=== PATIENT | female | born 1990 | race Caucasian/White ===

== ENCOUNTER 2017-05-15 22:31 | Emergency (ER) | payer OTHER ==
[2017-05-15 22:37] VITALS: TEMP 98.6; O2SAT 100; BMI 22.5
[2017-05-15] MEDS ORDERED: Lidocaine/Prilocaine 2.5%-2.5% Cream(30 gm) TOP ONE (23:11)
--- NOTE | 2017-05-16 00:16 | ED PDOC ---
Arrival/HPI - General Chief Complaint: Abnormal Skin Integrity Time Seen by Provider: 05/15/17 22:42 Historian: Patient - History of Present Illness Narrative History of Present Illness (Text): 05/16/17 00:15 Patient reports sustaining laceration to the left side of her face when a mirror fell and hit her on the head prior to arrival. Otherwise: (-) loss of consciousness, (-) nausea, (-) vomiting, (-) severe headache, (-) other injury, (-) neck pain, (-) subjective neurologic deficit, (-) anticoagulants. Has no history of prior significant head injury. PMD [place] Past Medical History - Infectious Disease Hx of Infectious Diseases: None - Tetanus Immunization Tetanus Immunization: Up to Date - HEENT Hx HEENT Disorder: Yes Other/Comment: DX:CHRONIC TONSILITIS - Genitourinary/Gynecological Other/Comment: pt misses periods "once in a while". OBGYN aware and she goes to appts regularly. - Psychiatric Hx Substance Use: No - Surgical History Hx Tonsillectomy: Yes - Anesthesia Hx Anesthesia: Yes Hx Anesthesia Reactions: No Family/Social History - Physician Review Nursing Documentation Reviewed: Yes Family/Social History: No Known Family HX Smoking Status: Never Smoked Hx Alcohol Use: No Hx Substance Use: No Allergies/Home Meds Allergies/Adverse Reactions: Allergies Penicillins Allergy (Verified 05/15/17 22:36) RASH Home Medications: Home Meds Medication Instructions Recorded Confirmed Norgestimate-Ethinyl Estradiol 1 tab PO DAILY 05/15/17 05/15/17 [Tri-Linyah Tablet] Review of Systems - Review of Systems Constitutional: Normal. absent: Fatigue, Weight Change, Fevers Respiratory: Normal. absent: SOB, Cough Cardiovascular: Normal. absent: Chest Pain, Palpitations Musculoskeletal: Normal. absent: Arthralgias, Back Pain, Neck Pain Skin: Normal, Laceration. absent: Rash, Pruritis, Skin Lesions Neurological: Normal. absent: Headache, Dizziness, Focal Weakness Physical Exam - Physical Exam Narrative Physical Exam (Text): 05/16/17 00:17 GENERAL APPEARANCE: Patient is awake, alert, oriented x 3, in mild painful distress. SKIN: Warm, dry; (-) cyanosis, (+) 6 cm linear laceration to the left side of the cheek. HEAD: (-) swelling and tenderness, with no palpable bony defect. EYES: (-) conjunctival pallor, (-) scleral icterus, (-) nystagmus. ENMT: Mucous membranes moist. (-) Rodriguez's sign. TMs: (-) blood. Nose: (- ) tenderness, (-) rhinorrhea. No oral trauma. Pharynx clear. Airway patent: (-) stridor. Full ROM of mandible without pain. NECK: (-) tenderness, (-) stiffness, (-) lymphadenopathy. CHEST AND RESPIRATORY: (-) chest wall tenderness. Lungs: (-) rales, (-) rhonchi, (-) wheezes; breath sounds equal bilaterally. HEART AND CARDIOVASCULAR: (-) irregularity; (-) murmur, (-) gallop. ABDOMEN AND GI: Soft; (-) tenderness. BACK: (-) tenderness. EXTREMITIES: (-) deformity, (-) tenderness, (-) limitation of motion NEURO AND PSYCH: GCS=15. Mental status as above. Has full memory of episode; lathe tender: Pupils equal & reactive . EOMI. (-) facial asymmetry. Tongue and uvula midline. Strength 5/5 in all extremities. No gross sensory deficits. DTRs symmetric. Vital Signs Temp Pulse Resp BP Pulse Ox 05/16/17 01:54 84 18 120/78 100 05/15/17 22:36 98.6 F 96 H 19 135/97 H 100 Medical Decision Making ED Course and Treatment: 05/16/17 00:14 26-year-old female presents to the ER for a laceration to the left side of her face which she sustained when a mirror fell on her head. On exam patient is noted to have a 6 cm laceration to the left side of her cheek which will require laceration repair. Due to the length and depth of the laceration, patient was advised that the best repair will be with sutures, however the patient is refusing, states that she prefers any other alternative methods such as dermabond. The wound is left side of the cheek. The wound was copiously irrigated with normal saline. The wound was prepped and draped in the normal sterile fashion. The wound was explored for foreign bodies and none were found. The wound was anesthetised using EMLA cream. The edges were reapproximated using dermabond. Bleeding was well controlled and the patient tolerated the procedure well. Given a dose of keflex po and tdap IM. Patient states she fully agrees with and understands discharge instructions. States that she agrees with the plan and disposition. Verbalized and repeated discharge instructions and plan. I have given the patient opportunity to ask any additional questions. Follow up with primary care physician in 1-2 days without fail. Return to the emergency room at any time for any new or worsening symptoms. 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 Disposition/Present on Arrival - Present on Arrival Any Indicators Present on Arrival: No History of DVT/PE: No History of Uncontrolled Diabetes: No Urinary Catheter: No History of Decub. Ulcer: No History Surgical Site Infection Following: None - Disposition Have Diagnosis and Disposition been Completed?: Yes Diagnosis: Facial laceration, Head injury Disposition Time: 01:39 Patient Plan: Discharge Patient Problems: Current Active Problems Problem Status Onset Facial laceration Acute Head injury Acute Condition: GOOD Discharge Instructions (ExitCare): Head Injury (ED), Facial Laceration (ED) Print Language: WOLOF Prescriptions: Cephalexin [Keflex] 500 mg PO Q6 #28 capsule
[2017-05-16] MEDS ORDERED: TDAP Vaccine 0.5 mL Syr IM ONE (01:46)
[2017-05-16 01:55] VITALS: BP 120/78; PULSE 84; RESP 18
== END 2017-05-16 02:25 | disposition home or self-care (01) ==
LOC: ED 22:31
DX: S01.412A Laceration without foreign body of left cheek and temporomandibular area, initial encounter (principal); W25.XXXA Contact with sharp glass, initial encounter; Y93.89 Activity, other specified; Y92.89 Other specified places as the place of occurrence of the external cause; Z23 Encounter for immunization

== ENCOUNTER 2017-08-28 03:43 | Emergency (ER) | payer OTHER ==
[2017-08-28 03:43] VITALS: BMI 22.5
[2017-08-28 03:52] VITALS: BP 134/82; PULSE 98; RESP 18; TEMP 99.9; O2SAT 100
--- NOTE | 2017-08-28 04:10 | ED PDOC ---
Arrival/HPI - General Chief Complaint: GI Problem Time Seen by Provider: 08/28/17 03:49 Historian: Patient - History of Present Illness Narrative History of Present Illness (Text): 08/28/17 03:50 Mary Nolan is a 27 year old female who presents to the emergency department complaining of productive coughs for about 3 weeks, nasal pharynx pain, sore throat, fever, nausea, and vomiting that began yesterday. Patient states that she woke up with flu-like symptoms today with an initial temperature of 100.6 which dropped to a 99.6 after taking fever reducers prior to arrival. Patient also staets to experience associated chills and dry-heaving. Patient denies any chest pain, shortness of breath, diarrhea, urinary symptoms, back pain, neck pain, headache, dizziness, or any other complaints. Time/Duration: 24 hours Symptom Onset: Gradual Symptom Course: Unchanged Severity Level: Mild Activities at Onset: Rest Context: Home Past Medical History - Provider Review Nursing Documentation Reviewed: Yes - Infectious Disease Hx of Infectious Diseases: None - Tetanus Immunization Tetanus Immunization: Up to Date - HEENT Hx HEENT Disorder: Yes Other/Comment: DX:CHRONIC TONSILITIS - Genitourinary/Gynecological Other/Comment: pt misses periods "once in a while". OBGYN aware and she goes to appts regularly. - Psychiatric Hx Substance Use: No - Surgical History Hx Tonsillectomy: Yes - Anesthesia Hx Anesthesia: No Family/Social History - Physician Review Nursing Documentation Reviewed: Yes Family/Social History: No Known Family HX Smoking Status: Never Smoked Hx Alcohol Use: No Hx Substance Use: No Allergies/Home Meds Allergies/Adverse Reactions: Allergies Penicillins Allergy (Verified 05/15/17 22:36) RASH Review of Systems - Physician Review All systems were reviewed & negative as marked: Yes - Review of Systems Constitutional: Fevers, Night Sweats Eyes: absent: Vision Changes ENT: Sore Throat. absent: Hearing Changes Respiratory: Cough, Sputum. absent: SOB Cardiovascular: absent: Chest Pain Gastrointestinal: Nausea, Vomiting Genitourinary Female: absent: Dysuria, Frequency Musculoskeletal: absent: Arthralgias, Back Pain, Neck Pain Skin: absent: Rash, Pruritis Neurological: absent: Headache, Dizziness Endocrine: absent: Diaphoresis Hemo/Lymphatic: absent: Adenopathy Physical Exam Vital Signs Reviewed: Yes Vital Signs Temp Pulse Resp BP Pulse Ox 08/28/17 03:49 99.9 F H 98 H 18 134/82 100 Appearance: Positive for: Well-Appearing, Non-Toxic, Comfortable Pain Distress: None Mental Status: Positive for: Alert and Oriented X 3 - Systems Exam Head: Present: Atraumatic, Normocephalic Pupils: Present: PERRL Extroacular Muscles: Present: EOMI Conjunctiva: Present: Normal Mouth: Present: Moist Mucous Membranes Pharnyx: Present: Other (cobblestonin to oral pharynx) Neck: Present: Normal Range of Motion Respiratory/Chest: Present: Clear to Auscultation, Good Air Exchange. No: Respiratory Distress, Accessory Muscle Use Cardiovascular: Present: Regular Rate and Rhythm, Normal S1, S2. No: Murmurs Abdomen: Present: Normal Bowel Sounds. No: Tenderness, Distention, Peritoneal Signs Back: Present: Normal Inspection Upper Extremity: Present: Normal Inspection. No: Cyanosis, Edema Lower Extremity: Present: Normal Inspection. No: Edema Neurological: Present: GCS=15, Motor Func Grossly Intact, Normal Sensory Function Skin: Present: Warm, Dry. No: Rashes Psychiatric: Present: Alert, Oriented x 3 - Scribe Statement The provider has reviewed the documentation as recorded by the Paul Zheng Provider Scribe Attestation: All medical record entries made by the Scribe were at my direction and personally dictated by me. I have reviewed the chart and agree that the record accurately reflects my personal performance of the history, physical exam, medical decision making, and the department course for this patient. I have also personally directed, reviewed, and agree with the discharge instructions and disposition. Disposition/Present on Arrival - Present on Arrival Any Indicators Present on Arrival: No History of DVT/PE: No History of Uncontrolled Diabetes: No Urinary Catheter: No History of Decub. Ulcer: No History Surgical Site Infection Following: None - Disposition Have Diagnosis and Disposition been Completed?: Yes Diagnosis: Influenza-like illness Disposition: HOME/ ROUTINE Disposition Time: 04:08 Condition: STABLE Discharge Instructions (ExitCare): Influenza (ED) Additional Instructions: Please follow up with your doctor. Return to the ER for any worsening symptoms or for any other concerns. Prescriptions: Azithromycin 250 mg PO DAILY #6 tab Ondansetron ODT [Zofran ODT] 4 mg PO Q4H PRN #10 odt PRN Reason: Nausea/Vomiting Referrals: Josemanuel Buckner MD [Primary Care Provider] - Follow up with primary Forms: [email or web address] (Austrian), WORK NOTE
== END 2017-08-28 04:45 | disposition home or self-care (01) ==
LOC: ED 03:43
DX: J11.1 Influenza due to unidentified influenza virus with other respiratory manifestations (principal)